=== PATIENT | female | born 1965 | race Caucasian/White ===

== ENCOUNTER → 2024-06-04 | Outpatient (CLI) | payer OTHER ==
[2024-06-04 15:49] VITALS: BP 137/86; PULSE 94; RESP 16; TEMP 98
--- NOTE | 2024-06-04 16:18 | P.SLEEP ---
History of Present Illness H&P Date: 06/04/24 Chief Complaint: Chronic hypersomnia A morbidly obese 58-year-old female patient is coming in for sleep apnea evaluation. The patient has typical symptoms to indicate sleep apnea including loud snoring and she has been noted by family members to quit breathing at night. The patient will wake up choking and gasping for air and she has a dry mouth in the morning. She goes to bed at around 10:30 PM and she gets out of bed at 6 AM in the morning. On weekends, she will sleep till 8 AM in the morning. 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 However, she is not at the point where she is not functional nor she denies falling asleep on the job. She lives in [facility] and she commutes back and forth to [place] and during the commute, she gets tired and she finds to stay awake. Nevertheless, she denies fall asleep while driving. Notes of any motor vehicle accident because of feeling drowsy or sleepy. The patient was recently seen in the hospital for symptoms of recurrent gastroenteritis. She is currently asymptomatic. GI workup still in progress. During her hospitalizations, she has been told to quit breathing and she also was noted to have nocturnal oxygen desaturations with a pulse ox dropped in the low 50s. Based on that, the patient was referred to me for sleep apnea evaluation. The patient is morbidly obese with a BMI of 47.8 and the patient has gained more than 100 pounds over the past 10 years. She sleeps on her side and occasionally on her back. She does not take regular naps. No sleep paralysis. No hallucinations. No cataplexy. No nighttime chest pain or shortness of breath. No active heartburn. No grinding. No restlessness in lower extremities. She feels unrefreshed upon waking up in the morning and she feels tired and fatigued throughout the day. The current Vardaman score is at 19 out of 24. No morning headaches. No nocturnal seizures. Her sleep is fragmented as the patient wakes up at least 4-5 times in the middle of the night to urinate. Comorbidities include diabetes mellitus type 2, hypertension, hyperlipidemia, acid reflux, and rheumatoid arthritis. Review of Systems Constitutional: Reports daytime sleepiness, Reports fatigue Eyes: denies as per HPI, denies blurred vision, denies bulging eye, denies decreased vision, denies diplopia, denies discharge, denies dry eye, denies irritation, denies itching, denies pain, denies photophobia, denies loss of peripheral vision, denies loss of vision, denies tunnel vision/blind spots Ears: deny: decreased hearing, ear discharge, earache, tinnitus Ears, nose, mouth and throat: Reports as per HPI Breasts: absent: as per HPI, change in shape, gynecomastia, masses, nipple discharge, pain, skin changes, swelling Cardiovascular: Reports as per HPI Respiratory: Reports snoring Gastrointestinal: Reports as per HPI Genitourinary: Reports as per HPI Menstruation: Reports as per HPI Musculoskeletal: Reports as per HPI Musculoskeletal: absent: ankle pain, ankle stiffness, ankle swelling, as per HPI, elbow pain, elbow stiffness, elbow swelling, foot pain, foot stiffness, foot swelling, hand pain, hand stiffness, hand swelling, hip pain, hip stiffness, hip swelling, knee pain, knee stiffness, knee swelling, shoulder pain, shoulder stiffness, shoulder swelling, wrist pain, wrist stiffness, wrist swelling Integumentary: Reports as per HPI Neurological: Reports as per HPI Psychiatric: Reports hypersomnia, Reports sleep disturbances Endocrine: Reports as per HPI, Reports fatigue Hematologic/Lymphatic: Reports as per HPI Allergic/Immunologic: Reports as per HPI Past Medical History Past Medical History: Diabetes Mellitus, GERD/Reflux, Hyperlipidemia, Hypertension, Rheumatoid Arthritis (RA) - Past Family History Mother Family Medical History: Coronary Artery Disease (CAD), Diabetes Mellitus, Hypertension Additional Family Medical History / Comment(s): ulcers, headaches Father Family Medical History: Osteoarthritis (OA) Medications and Allergies Home Medications Medication Instructions Recorded Confirmed Type Acetaminophen [Acetaminophen ER] 650 mg PO DAILY 06/04/24 06/04/24 History Atorvastatin [Lipitor] 20 mg PO DAILY 06/04/24 06/04/24 History Cholecalciferol (Vitamin D3) 125 mcg PO DAILY 06/04/24 06/04/24 History [Vitamin D3 (125 MCG = 5,000 IU)] Dicyclomine [Bentyl] 10 mg PO QID 06/04/24 06/04/24 History Famotidine 20 mg PO DAILY 06/04/24 06/04/24 History Lisinopril-Hctz 20-12.5 mg See Rx Instructions .ROUTE .COMPLEX 06/04/24 06/04/24 History [Zestoretic 20-12.5] Omeprazole 20 mg PO DAILY 06/04/24 06/04/24 History Pioglitazone HCl 30 mg PO DAILY 06/04/24 06/04/24 History glipiZIDE XL [Glucotrol XL] 5 mg PO DAILY 06/04/24 06/04/24 History sulfaSALAzine 500 mg PO DAILY 06/04/24 06/04/24 History Physical Exam Vitals: Vital Signs Temp Pulse Resp BP Pulse Ox 06/04/24 15:48 98 F 94 16 137/86 96 The patient appeared well nourished and normally developed. Vital signs as documented. The patient has a body mass index of 47.8 Head exam is unremarkable. No scleral icterus or corneal arcus noted. Neck is without jugular venous distension, thyromegaly, or carotid bruits. Carotid upstrokes are brisk bilaterally. The patient has a Mallampati class IV with significant crowding of the posterior pharynx Lungs are clear to auscultation and percussion. Cardiac exam reveals the PMI to be normally sized and situated. Rhythm is regular. First and second heart sounds normal. No murmurs, rubs or gallops. Abdominal exam reveals normal bowel sounds, no masses, no organomegaly and no aortic enlargement. Extremities are nonedematous and both femoral and pedal pulses are normal. Examination of the skin revealed no evidence of significant rashes, suspicious appearing nevi or other concerning lesions. Neurologically, the patient is awake and alert and the patient does not have any focal neurological deficit. Cranial nerves are essentially intact. Assessment and Plan Plan: Chronic hypersomnia with an Vardaman score of 19. There is an increased li kelihood for obstructive sleep apnea especially with a history of loud snoring, sleep fragmentation, witnessed apneas and nocturnal oxygen saturations as noted during her recent hospitalization. Clinical suspicion for sleep apnea is quite high in this patient. Obesity with a BMI of 47.8 Chronic fatigue and sleepiness secondary to above Diabetes mellitus type 2 Hypertension Hyperlipidemia Rheumatoid arthritis currently on sulfasalazine and Tylenol Acid reflux which is currently inactive and stable Recurrent gastroenteritis, currently under workup through the primary care physician. Symptoms are inactive. Plan Encourage weight loss Avoid things specially when feeling drowsy or sleepy Maintain regular sleep schedule and avoid any sleep deprivation Maintain good sleep hygiene measures Increased likelihood for obstructive sleep apnea. The patient will have a polysomnography and she will likely need CPAP therapy at a later stage. Will make further recommendations based on the results of the sleep study Will continue to follow. Sleep Note - Sleep Data ESS Total: 19 - Sleep Note Sleep Note: Temperature: 98 F Pulse Rate: 94 Respiratory Rate: 16 Blood Pressure: 137/86 SpO2: 96 Height: Weight: BMI: Neck Circumference: 16.5
== END ==
LOC: 3 N SLEEP 15:07
PROVIDERS: ATTEND Internal Medicine Critical Care Medicine
DX: G47.10 Hypersomnia, unspecified (principal); E11.9 Type 2 diabetes mellitus without complications; I10 Essential (primary) hypertension; E78.5 Hyperlipidemia, unspecified; K21.9 Gastro-esophageal reflux disease without esophagitis; M06.9 Rheumatoid arthritis, unspecified; K52.9 Noninfective gastroenteritis and colitis, unspecified; E66.01 Morbid (severe) obesity due to excess calories; Z68.42 Body mass index [BMI] 45.0-49.9, adult
CPT/HCPCS: 99202

== ENCOUNTER 2024-08-04 19:31 | Outpatient (CLI) | payer OTHER ==
--- NOTE | 2024-08-05 22:56 | P.PCN ---
Date of Procedure: 08/04/24 Operative Findings: CPAP titration report Date of surgery 08/04/2024 History A morbidly obese 58-year-old female patient is coming in for sleep apnea evaluation. The patient has typical symptoms to indicate sleep apnea including loud snoring and she has been noted by family members to quit breathing at night. The patient will wake up choking and gasping for air and she has a dry mouth in the morning. She goes to bed at around 10:30 PM and she gets out of bed at 6 AM in the morning. On weekends, she will sleep till 8 AM in the morning. 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 However, she is not at the point where she is not functional nor she denies falling asleep on the job. She lives in [facility] and she commutes back and forth to [place] and during the commute, she gets tired and she finds to stay awake. Nevertheless, she denies fall asleep while driving. Notes of any motor vehicle accident because of feeling drowsy or sleepy. The patient was recently seen in the hospital for symptoms of recurrent gastroenteritis. She is currently asymptomatic. GI workup still in progress. During her hospitalizations, she has been told to quit breathing and she also was noted to have nocturnal oxygen desaturations with a pulse ox dropped in the low 50s. Based on that, the patient was referred to me for sleep apnea evaluation. The patient is morbidly obese with a BMI of 47.8 and the patient has gained more than 100 pounds over the past 10 years. She sleeps on her side and occasionally on her back. She does not take regular naps. No sleep paralysis. No hallucinations. No cataplexy. No nighttime chest pain or shortness of breath. No active heartburn. No grinding. No restlessness in lower extremities. She feels unrefreshed upon waking up in the morning and she feels tired and fatigued throughout the day. The current Stratford score is at 19 out of 24. No morning headaches. No nocturnal seizures. Her sleep is fragmented as the patient wakes up at least 4-5 times in the middle of the night to urinate. Comorbidities include diabetes mellitus type 2, hypertension, hyperlipidemia, acid reflux, and rheumatoid arthritis. The patient underwent a screening polysomnography and the patient was diagnosed having severe obstructive sleep apnea with an AHI of 127. Based on that, the patient is coming in to undergo a CPAP titration. Pertinent physical findings The weight is 283 pounds with a BMI of 47.8 Technical description The patient was studied using a standard complex polysomnography protocol that included recording of the Lead II EKG, Central, occipital and frontal EEG, right and left outer canthus EOG, submental EMG, right and left anterior tibialis EMG, respiratory airflow by thermocouple and or pressure/flow transducer, respiratory efforts by abdominal and thoracic PVDF belts, oxygen saturation by cable oximetry. Position by observation synchronized the PSG. Equipment used: [employer]. Stepwise CPAP titration was done to illuminate all obstructive respiratory events. Sleep architecture The patient's total recording duration was 413.5 minutes. The total sleep time was 339.5 minutes. The wake after sleep onset time was 46 minutes. The overall sleep efficiency was 82.1%. The latency to sleep onset was 27 minutes and the latest REM sleep was 116 minutes. Sleep architecture was characterized by 4.3% stage I, 54.3% stage II, 6% stage III and a total of 35.3% REM sleep. The total arousal index was 4.1. PAP titration summary The patient was started on CPAP therapy initially at the pressure of 5 cm of water and the pressure was gradually increased to a maximum CPAP pressure of 13 cm of water. Due to lack of adequate response, the patient was switched to BiPAP pressures of 15/11 and later on 16 over 12 cm of water. This will succes sful titration. At BiPAP pressures of 15/11 and 16/12 cm of water the patient adequate illumination of the obstructive respiratory events without any significant desaturations. In addition, there was improvement in the patient's oxygenation without any significant desaturations. Noted during titration was done and various sleep stages. The patient encountered the REM rebound. The patient was studied also in the supine and nonsupine body position. Cardiac summary Average heart rate was 73 with a minimum heart rate of 68 and a maximum heart of 80 Periodic movement activity The patient had a total of 221 periodic limb movement activity with an index of 39.1. There was only 1 periodic limb movement activity with arousal with a nasal pillow 0.2 Arousal summary/events The patient had total of 23 arousals with an index of 4.1. The respiratory arousal index was 0.5 Assessment Severe symptomatic obstructive sleep apnea with an AHI of 127, the patient failed CPAP therapy and the patient had a successful BiPAP titration. There was adequate elimination of the obstructive respiratory events in various sleep stages and body position. Severe nocturnal oxygen desaturation with a minimum pulse ox of 48% during sleep, improved with BiPAP therapy Chronic hypersomnia with an Stratford score of 19. Obesity with a BMI of 47.8 Chronic fatigue and sleepiness secondary to above Diabetes mellitus type 2 Hypertension Hyperlipidemia Rheumatoid arthritis currently on sulfasalazine and Tylenol Acid reflux which is currently inactive and stable Recurrent gastroenteritis, currently under workup through the primary care physician. Symptoms are inactive. Plan Encourage weight loss Avoid things specially when feeling drowsy or sleepy Maintain regular sleep schedule and avoid any sleep deprivation Maintain good sleep hygiene measures Proceed with BiPAP therapy and the patient is going to be offered a VPAP auto with a EPAP minimum of 11 and a maximum pressure of 20 and a pressure support of 4. Will offer the patient a AirFit F30 high small size fullface mask the patient was seen back in 30-90 days in the office to assess clinical response and make further adjustments based on overall tolerability and compliance.
== END 2024-08-05 06:20 | disposition home or self-care (01) ==
LOC: 3 N SLEEP 19:31
PROVIDERS: ATTEND Internal Medicine Critical Care Medicine
DX: G47.33 Obstructive sleep apnea (adult) (pediatric) (principal); E11.9 Type 2 diabetes mellitus without complications; I10 Essential (primary) hypertension; E78.5 Hyperlipidemia, unspecified; M06.9 Rheumatoid arthritis, unspecified; K21.9 Gastro-esophageal reflux disease without esophagitis; K52.9 Noninfective gastroenteritis and colitis, unspecified; R53.82 Chronic fatigue, unspecified; E66.9 Obesity, unspecified; Z68.42 Body mass index [BMI] 45.0-49.9, adult; Z99.89 Dependence on other enabling machines and devices
CPT/HCPCS: 95811